=== PATIENT | female | born 1985 | race Caucasian/White ===

== ENCOUNTER 2023-09-22 09:55 | Emergency (ER) | payer OTHER ==
[~2023-09-22] VITALS: Ht 154.9 cm; Wt 87.6 kg
[2023-09-22 10:01] VITALS: BP 123/59; PULSE 71; RESP 17; TEMP 98.1; O2SAT 98
[2023-09-22] MEDS ORDERED: ZOLP5TAB1 PO (10:54)
[2023-09-22 11:02] VITALS: BP 123/59; PULSE 71; RESP 17; TEMP 98.1; O2SAT 98
== END 2023-09-22 11:02 | disposition home or self-care (01) ==
LOC: MED 09:55
DX: G47.00 Insomnia, unspecified (principal); R42 Dizziness and giddiness; F43.9 Reaction to severe stress, unspecified
CPT/HCPCS: 93005; 99283

== ENCOUNTER 2024-01-25 10:45 | Emergency (ER) | payer OTHER ==
[~2024-01-25] VITALS: Ht 154.9 cm; Wt 85.3 kg
[~2024-01-25 10:45] MED LIST: ZOLP5TAB1 PO
[2024-01-25 11:06] VITALS: BP 122/85; PULSE 62; RESP 15; TEMP 98.1; O2SAT 96
[2024-01-25] MEDS: KETOROLAC 60 MG/2 ML VIAL IM ONE (11:25)
[2024-01-25 11:33] LABS: BILIRUBIN,URINE NEGATIVE (NEGATIVE); BLOOD, URINE 3+ (NEGATIVE); COLOR,URINE YELLOW (YELLOW); LEUKOCYTE ESTERASE ,URINE TRACE (NEGATIVE); NITRITE, URINE NEGATIVE (NEGATIVE); PROTEIN,URINE NEGATIVE (NEGATIVE); UGLUCOSE NEGATIVE (NEGATIVE)
[2024-01-25 11:39] LABS: APPEARANCE,URINE HAZY (CLEAR)
[2024-01-25 11:40] LABS: RBC,URINE 50-80 /HPF (0-5)
[2024-01-25 11:41] LABS: BACTERIA,URINE OCCASSIONAL /HPF (None Seen); SQUAMOUS EPITHELIAL CELL,UR 4-10 (MOD) /LPF (0-3 (FEW))
[2024-01-25 11:42] LABS: WBC,URINE 0-5 /HPF (0-5)
[2024-01-25] MEDS ORDERED: NAPR-1704 PO (12:21)
[2024-01-25] MEDS ORDERED: FAMO-90 PO (12:21)
== END 2024-01-25 12:40 | disposition home or self-care (01) ==
LOC: MED 10:45
DX: G89.29 Other chronic pain (principal); M79.671 Pain in right foot; M25.532 Pain in left wrist; Z79.899 Other long term (current) drug therapy
CPT/HCPCS: 29125; 73110; 73630; 81001; 81025; 96372; 99284; J1885